=== PATIENT | male | born 1960 | race Two or more races ===

== ENCOUNTER 2023-05-22 07:38 | Emergency (ER) | payer BC ==
[2023-05-22 08:22] VITALS: RESP 18; BMI 21.9
[2023-05-22 09:15] LABS: BASO % 0.7 % (0-2.0); EOS % 0.4 % (0-4.5); HEMATOCRIT 41.7 % (35.4-49); LYMPH % 16.6 % (8-40); MCH 26.4 pg (25.7-33.7); MCHC 33.5 g/dl (32.0-35.9); MEAN CELL VOLUME 78.7 fl (80-96); MEAN PLT VOLUME 8.1 fl (7.5-11.1); MONO % 6.8 % (3.8-10.2); NEUT % 75.5 % (42.8-82.8); PLATELET COUNT 303 10^3/uL (134-434); RBC 5.29 M/mm3 (4.00-5.60); RDW 15.1 % (11.9-15.9); WHITE BLOOD COUNT 10.6 K/mm3 (4.0-10.0)
[2023-05-22 09:20] LABS: INR 1.24 (0.83-1.09); PROTHROMBIN TIME (PATIENT) 14.3 SEC (9.7-13.0)
[2023-05-22 09:32] LABS: POTASSIUM 4.7 mmol/L (3.5-5.1)
[2023-05-22 09:34] LABS: ALBUMIN 4.1 g/dl (3.4-5.0); MAGNESIUM 2.6 mg/dL (1.8-2.4)
[2023-05-22 09:35] LABS: CALCIUM 9.5 mg/dL (8.5-10.1)
[2023-05-22 09:37] LABS: CREATININE 0.9 mg/dL (0.55-1.3)
[2023-05-22 09:39] LABS: TOT PROT 7.5 g/dl (6.4-8.2)
[2023-05-22 09:40] LABS: BILIRUBIN,TOTAL 0.3 mg/dL (0.2-1)
[2023-05-22] MEDS ORDERED: MIDAZOLAM HCL 2 MG/2 ML SINGLE DOSE VIAL IVPUSH ONE (11:40)
[2023-05-22] MEDS ORDERED: MIDAZOLAM HCL 2 MG/2 ML SINGLE DOSE VIAL ONE (11:41)
[2023-05-22 13:03] VITALS: TEMP 98
[2023-05-22 14:39] VITALS: BP 152/78; PULSE 75
== END 2023-05-22 14:25 | disposition home or self-care (01) ==
LOC: JER 07:38
PROC: 3E033GC Introduction of Other Therapeutic Substance into Peripheral Vein, Percutaneous Approach (ICD-10-PCS; principal; 2023-05-22)
DX: R06.02 Shortness of breath (principal); R20.2 Paresthesia of skin; R53.1 Weakness
CPT/HCPCS: 36415; 70450-TC; 70551-TC; 71046-TC-FY; 72125-TC; 80053; 80061; 83735; 84484; 85025; 85610; 85730; 93005; 93010; 99285-25